=== PATIENT | female | born 2000 | race Caucasian/White ===

== ENCOUNTER 2018-01-21 18:41 | Emergency (ER) | payer OTHER ==
[~2018-01-21] VITALS: Ht 160 cm; Wt 74.3 kg
[2018-01-21 18:46] VITALS: TEMP 37.2; Ht 160 cm; Wt 74.3 kg
[2018-01-21] MEDS ORDERED: BCPILLS PO (18:55)
[2018-01-21] MEDS ORDERED: IBUP-103 PO (18:55)
[2018-01-21] MEDS ORDERED: [UNRECOGNIZED DRUG - REMARK] PO (18:55)
[2018-01-21] MEDS ORDERED: ACETAMINOPHEN 500 MG TAB PO STA (19:06)
--- NOTE | 2018-01-21 20:11 | DIAGNOSTIC IMAGING REPORT ---
HEAD WITHOUT CONTRAST (CT) CLINICAL HISTORY: 17 years-old Female with head injury, dizziness/vomiting. Acute dizziness and vomiting with head injury TECHNIQUE: Multiple axial CT images of the head were obtained without contrast. A dose lowering technique was utilized adhering to the principles of ALARA. CT DOSE: 537.48 mGy.cm COMPARISON: None. FINDINGS: No acute intracranial hemorrhage, midline shift, intracranial mass, hydrocephalus, territorial ischemia or abnormal extra-axial collection. The calvarium is intact. The paranasal sinuses, mastoid air cells, and middle ear cavities are clear. IMPRESSION: No acute intracranial abnormality. The above report was generated using voice recognition software. It may contain grammatical, syntax or spelling errors. Electronically signed by: Luis Enrique Galeas M.D. 01/21/2018 8:10 PM Dictated Date/Time: 01/21/2018 7:54 PM
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
[2018-01-21 20:55] VITALS: BP 129/78; PULSE 78; O2SAT 99
== END 2018-01-21 20:56 | disposition home or self-care (01) ==
LOC: C.EDB 18:42 → C.EDD 20:56
DX: S06.0X0A Concussion without loss of consciousness, initial encounter (principal); S00.93XA Contusion of unspecified part of head, initial encounter; Y04.0XXA Assault by unarmed brawl or fight, initial encounter; Z79.3 Long term (current) use of hormonal contraceptives; Z79.899 Other long term (current) drug therapy; K21.9 Gastro-esophageal reflux disease without esophagitis